=== PATIENT | female | born 1995 | race Hispanic/Latino ===

== ENCOUNTER → 2016-08-25 | Emergency (ER) | payer OTHER ==
[~2016-08-25] VITALS: Ht 149.9 cm; Wt 60.8 kg
[~2016-08-25] MED LIST: ESCI20TA PO; ESCI5SOL3 PO; HYDR25T PO; LEXA5SOL PO; TRAZ50TA4 PO; VITA200016 PO
[2016-08-25 21:27] VITALS: BP 118/68
== END | disposition home or self-care (01) ==
LOC: M ED 21:03
DX: F41.9 Anxiety disorder, unspecified (principal); F32.9 Major depressive disorder, single episode, unspecified; Z72.0 Tobacco use; Z79.899 Other long term (current) drug therapy

== ENCOUNTER 2016-08-27 20:24 | Emergency (ER) | payer OTHER ==
[~2016-08-27] VITALS: Ht 149.9 cm; Wt 61.2 kg
[2016-08-27] MEDS ORDERED: ACETAMINOPHEN TAB 650MG DOSE (2X325MG) PO ONE (23:30)
[2016-08-27 23:54] VITALS: BP 122/68
== END 2016-08-27 23:54 | disposition home or self-care (01) ==
LOC: M ED 22:02
DX: S06.0X0A Concussion without loss of consciousness, initial encounter (principal); W22.8XXA Striking against or struck by other objects, initial encounter; Y92.098 Other place in other non-institutional residence as the place of occurrence of the external cause; Y93.89 Activity, other specified; Y99.8 Other external cause status; F41.9 Anxiety disorder, unspecified; G47.00 Insomnia, unspecified; F32.9 Major depressive disorder, single episode, unspecified; E55.9 Vitamin D deficiency, unspecified; F17.210 Nicotine dependence, cigarettes, uncomplicated; Z79.899 Other long term (current) drug therapy